=== PATIENT | male | born 1965 | race Caucasian/White ===

== ENCOUNTER 2018-04-06 05:54 | Day surgery (SDC) | payer BC ==
[2018-04-06] MEDS: LR 1,000 ML IV (07:10)
[2018-04-06] MEDS ORDERED: PROPOFOL 200 MG/20 ML VIAL As Ordered ×2 (07:46→08:01)
[2018-04-06] MEDS ORDERED: fentaNYL 100 MCG/2 ML INJECTION (J3010) As Ordered (07:46)
[2018-04-06] MEDS ORDERED: MIDAZOLAM INJ 2 MG/2 ML VIAL (J2250) As Ordered (07:46)
[2018-04-06] MEDS ORDERED: KETAMINE HCL 200 MG/20 ML VIAL As Ordered (08:01)
[2018-04-06] MEDS: BUPIVACAINE HCL 0.25% 10 ML VIAL As Ordered (08:21)
[2018-04-06] MEDS: LIDOCAINE W/EPINEPHRINE 1% 20ML VIAL As Ordered (08:21)
== END 2018-04-06 09:30 | disposition home or self-care (01) ==
LOC: M SDC 05:54
DX: D17.1 Benign lipomatous neoplasm of skin and subcutaneous tissue of trunk (principal); D17.21 Benign lipomatous neoplasm of skin and subcutaneous tissue of right arm; D17.23 Benign lipomatous neoplasm of skin and subcutaneous tissue of right leg; D17.24 Benign lipomatous neoplasm of skin and subcutaneous tissue of left leg; I10 Essential (primary) hypertension; M54.5 Low back pain; F41.9 Anxiety disorder, unspecified; F32.9 Major depressive disorder, single episode, unspecified; F43.10 Post-traumatic stress disorder, unspecified; G47.33 Obstructive sleep apnea (adult) (pediatric); Z79.899 Other long term (current) drug therapy; Z92.3 Personal history of irradiation
CPT/HCPCS: 21931

== ENCOUNTER 2018-12-27 11:10 | Day surgery (SDC) | payer BC ==
[~2018-12-27] VITALS: Ht 182.9 cm; Wt 83.5 kg
[~2018-12-27 11:10] MED LIST: ATEN50TA2 PO; BUSP10TA PO; ESCI20TA; HYDR25TAB; LISI-538 PO; OMEP20CA3; SERO50TA PO; VITA1CAP25
[2018-12-27] MEDS ORDERED: LIDOCAINE 2% MDV 20 ML VIAL As Ordered ONE (11:43)
[2018-12-27] MEDS ORDERED: PROPOFOL 200 MG/20 ML VIAL As Ordered ONE ×3 (11:43→12:58)
[2018-12-27] MEDS ORDERED: NS 1,000 ML IV ONE (12:00)
[2018-12-27] MEDS ORDERED: fentaNYL 100 MCG/2 ML INJECTION (J3010) As Ordered ONE (12:22)
--- NOTE | 2018-12-27 12:40 | ROOR ---
Patient Name: Arjun Limon Procedure Date: 12/27/2018 12:24 PM Date of : 1965 Age: 53 Room: [facility] Gender: Male Note Status: Finalized Procedure: Upper GI endoscopy Indications: Coffee-ground emesis, Vomiting Providers: Gregorio WATTERS MD Referring MD: MICHAEL RODRIGUES DO Requesting Provider: Medicines: Monitored Anesthesia Care Complications: No immediate complications. Procedure: Pre-Anesthesia Assessment: - The heart rate, respiratory rate, oxygen saturations, blood pressure, adequacy of pulmonary ventilation, and response to care were monitored throughout the procedure. The Endoscope was introduced through the mouth, and advanced to the second part of duodenum. The upper GI endoscopy was accomplished without difficulty. The patient tolerated the procedure well. Findings: Diffuse mild inflammation characterized by erythema was found in the entire examined stomach. Biopsies were taken with a cold forceps for histology. Patchy mild inflammation characterized by erythema was found in the first portion of the duodenum. Biopsies were taken with a cold forceps for histology. Patchy, white plaques were found in the lower third of the esophagus. The exam was otherwise without abnormality. Impression: - Mild Gastritis. Biopsied. - Mild Duodenitis. Biopsied. - A few white esophageal plaques were found, consistent with candidiasis. - The examination was otherwise normal. Recommendation: - Telephone endoscopist for pathology results in 2 weeks. - Use Prilosec (omeprazole) 40 mg PO daily. - (the script was sent to your pharmacy on file) - Nystatin suspension 100,000 units PO QID for 1 week. - (the script was sent to your pharmacy on file) Gregorio Watters MD Gregorio WATTERS MD 12/27/2018 12:39:29 PM This report has been signed electronically. Number of Addenda: 0 Note Initiated On: 12/27/2018 12:24 PM Estimated Blood Loss: Estimated blood loss: none.
--- NOTE | 2018-12-27 13:18 | ROOR ---
Patient Name: Arjun Limon Procedure Date: 12/27/2018 12:23 PM Date of : 1965 Age: 53 Room: [facility] Gender: Male Note Status: Finalized Procedure: Colonoscopy Indications: High risk colon cancer surveillance: Personal history of colonic polyps, Incidental - Hematochezia Providers: Gregorio WATTERS MD Referring MD: MICHAEL RODRIGUES DO Requesting Provider: Medicines: Monitored Anesthesia Care Complications: No immediate complications. Procedure: Pre-Anesthesia Assessment: - The heart rate, respiratory rate, oxygen saturations, blood pressure, adequacy of pulmonary ventilation, and response to care were monitored throughout the procedure. The Colonoscope was introduced through the anus and advanced to the terminal ileum, with identification of the appendiceal orifice and IC valve. The colonoscopy was performed without difficulty. The patient tolerated the procedure well. The quality of the bowel preparation was good. Findings: The perianal and digital rectal examinations were normal. A flat centrally depressed 12 mm polyp was found in the mid rectum (@ 7 cm from verge). The polyp was centrally depressed. The polyp was removed with a piecemeal (2 pieces) technique using a hot snare. Resection and retrieval were complete. Area was successfully injected with 3 mL Larissa ink for tattooing. To prevent bleeding after the polypectomy, three hemostatic clips were successfully placed (MR conditional). There was no bleeding at the end of the procedure. Two sessile polyps were found in the sigmoid colon. The polyps were diminutive in size. These polyps were removed with a cold snare. Resection and retrieval were complete. Internal hemorrhoids were found during retroflexion. The hemorrhoids were medium-sized. A few small-mouthed diverticula were found in the sigmoid colon. The exam was otherwise without abnormality on direct and retroflexion views. Impression: - One flat centrally depressed 12 mm polyp in the mid rectum (7 cm from verge), removed piecemeal (2 pieces) using a hot snare. Resected and retrieved. Injected with larissa ink/Tattoo. Clips (MR conditional) were placed. - Two diminutive polyps in the sigmoid colon, removed with a cold snare. Resected and retrieved. - Moderate internal hemorrhoids. - Mild diverticulosis in the sigmoid colon. - The examination was otherwise normal on direct and retroflexion views. Recommendation: - Await pathology results. - Telephone endoscopist for pathology results in 1 week. Gregorio Watters MD Gregorio WATTERS MD 12/27/2018 1:17:56 PM This report has been signed electronically. Number of Addenda: 0 Note Initiated On: 12/27/2018 12:23 PM Estimated Blood Loss: Estimated blood loss: none.
[2018-12-27 13:35] VITALS: BP 178/82
== END 2018-12-27 14:02 | disposition home or self-care (01) ==
LOC: M OPP 11:10
PROVIDERS: ATTEND Internal Medicine Gastroenterology
DX: Z09 Encounter for follow-up examination after completed treatment for conditions other than malignant neoplasm (principal); Z86.010 Personal history of colon polyps; K62.1 Rectal polyp; D12.5 Benign neoplasm of sigmoid colon; K64.8 Other hemorrhoids; K57.30 Diverticulosis of large intestine without perforation or abscess without bleeding; K29.70 Gastritis, unspecified, without bleeding; K29.80 Duodenitis without bleeding; K22.9 Disease of esophagus, unspecified; K92.0 Hematemesis; Z85.47 Personal history of malignant neoplasm of testis
CPT/HCPCS: 43239; 45381; 45385; 88305; J3010